=== PATIENT | male | born 1990 | race Two or more races ===

== ENCOUNTER 2023-07-09 13:11 | Emergency (ER) | payer MEDICAID, OTHER ==
[~2023-07-09] VITALS: Ht 175.3 cm; Wt 79.5 kg
[2023-07-09 14:13] VITALS: TEMP 98.7
[2023-07-09] MEDS ORDERED: ACETAMINOPHEN 500 MG TABLET PO ONE (15:00)
[2023-07-09] MEDS ORDERED: IBUPROFEN 600 MG TABLET PO ONE (15:00)
[2023-07-09 16:16] VITALS: BP 121/81; PULSE 74; RESP 16
== END 2023-07-09 16:59 | disposition home or self-care (01) ==
LOC: EMS 13:11
DX: S92.131A Displaced fracture of posterior process of right talus, initial encounter for closed fracture (principal); X58.XXXA Exposure to other specified factors, initial encounter; Y93.89 Activity, other specified; Y92.89 Other specified places as the place of occurrence of the external cause; Y99.8 Other external cause status
CPT/HCPCS: 29515; 99283